=== PATIENT | female | born 1990 | race African-American/Black ===

== ENCOUNTER → 2018-11-09 | Emergency (ER) | payer OTHER | END | disposition home or self-care (01) | LOC: JERFT 18:26 ==

== ENCOUNTER 2020-12-23 12:24 | Emergency (ER) | payer OTHER ==
[2020-12-23 12:31] VITALS: TEMP 98.5; BMI 34.3
[2020-12-23] MEDS ORDERED: MAG HYDROX/AL HYDROX/SIMETH 30 ML UNIT-DOSE CUP PO ONE (13:20)
[2020-12-23] MEDS ORDERED: FAMOTIDINE 20 MG TABLET PO ONE (13:20)
[2020-12-23] MEDS ORDERED: MAG HYDROX/AL HYDROX/SIMETH 30 ML UNIT-DOSE CUP ONE (13:24)
[2020-12-23] MEDS ORDERED: FAMOTIDINE 20 MG TABLET ONE (13:24)
[2020-12-23 13:27] LABS: BASO % 0.6 % (0-2.0); EOS % 0.7 % (0-4.5); HEMATOCRIT 37.2 % (32.4-45.2); HEMOGLOBIN 12.1 GM/dL (10.7-15.3); LYMPH % 11.6 % (8-40); MCH 26.4 pg (25.7-33.7); MCHC 32.5 g/dl (32.0-36.0); MEAN CELL VOLUME 81.1 fl (80-96); MEAN PLT VOLUME 8.3 fl (7.5-11.1); MONO % 5.4 % (3.8-10.2); NEUT % 81.7 % (42.8-82.8); PLATELET COUNT 341 10^3/uL (134-434); RBC 4.59 M/mm3 (3.60-5.2); WHITE BLOOD COUNT 9.5 K/mm3 (4.0-10.0)
[2020-12-23 13:35] LABS: INR 1.18 (0.83-1.09); PROTHROMBIN TIME (PATIENT) 14.2 SEC (9.7-13.0)
[2020-12-23 13:38] LABS: ACTIVATED PTT 33.3 SECONDS (25.2-36.5)
[2020-12-23 14:04] LABS: CHLORIDE 110 mmol/L (98-107); SODIUM 144 mmol/L (136-145)
[2020-12-23 14:09] LABS: ANION GAP 10 MMOL/L (8-16); BLOOD UREA NITROGEN 6.2 mg/dL (7-18); CALCIUM 9.1 mg/dL (8.5-10.1); CO2 24 mmol/L (21-32); GLUCOSE,RANDOM 93 mg/dL (74-106)
[2020-12-23 14:12] LABS: CREATININE 0.8 mg/dL (0.55-1.3); SGPT/ALT 22 U/L (13-61)
[2020-12-23 14:13] LABS: SGOT/AST 16 U/L (15-37)
[2020-12-23 14:14] LABS: BILIRUBIN,TOTAL 0.3 mg/dL (0.2-1); TOT PROT 7.9 g/dl (6.4-8.2)
[2020-12-23 14:15] LABS: ALK PHOS 77 U/L (45-117)
[2020-12-23 14:46] LABS: HCG,QUALITATIVE URINE Negative
[2020-12-23 15:07] LABS: EPI CELLS 6 /uL (0-25.1); HYALINE CASTS 0 /uL (0-3.1); URINE APPEARANCE CLEAR; URINE BACTERIA 74 /uL (0-1359); URINE BILIRUBIN NEGATIVE (NEGATIVE); URINE COLOR YELLOW; URINE GLUCOSE (UA) NEGATIVE (NEGATIVE); URINE KETONE NEGATIVE (NEGATIVE); URINE LEUK ESTERASE NEGATIVE (NEGATIVE); URINE NITRITE NEGATIVE (NEGATIVE); URINE PROTEIN NEGATIVE (NEGATIVE); URINE RBC 65 /uL (0-23.9); URINE UROBILINOGEN 0.2 mg/dL (0.2-1.0); URINE WBC 15 /uL (0-25.8)
[2020-12-23] MEDS ORDERED: DICYCLOMINE HCL 20 MG TABLET PO ONE (15:40)
[2020-12-23] MEDS ORDERED: SUCRALFATE 1 GM/10 ML UNIT DOSE CUPS PO ONE (15:43)
[2020-12-23] MEDS ORDERED: KETOROLAC TROMETHAMINE 30 MG/1 ML VIAL IM ONE (17:02)
[2020-12-23] MEDS ORDERED: KETOROLAC TROMETHAMINE 30 MG/1 ML VIAL ONE (17:14)
[2020-12-23 18:00] VITALS: BP 128/72; PULSE 66
== END 2020-12-23 18:00 | disposition home or self-care (01) ==
LOC: JER 12:24
PROC: 3E0233Z Introduction of Anti-inflammatory into Muscle, Percutaneous Approach (ICD-10-PCS; principal; 2020-12-23)
DX: K21.9 Gastro-esophageal reflux disease without esophagitis (principal); K29.00 Acute gastritis without bleeding; R10.13 Epigastric pain
CPT/HCPCS: 36415; 80053; 81003; 82550; 82553; 84484; 84703; 85025; 85610; 85730; 86850; 86900; 86901; 87086; 99284-25

== ENCOUNTER 2023-09-11 17:49 | Emergency (ER) | payer OTHER ==
[2023-09-11 18:03] VITALS: BP 131/65; PULSE 88; RESP 18; TEMP 99.6; BMI 46.0
[2023-09-11 18:44] LABS: EPI CELLS 5 /uL (0-25.1); HYALINE CASTS 0 /uL (0-3.1); PH,URINE 6.5 (5.0-8.0); URINE APPEARANCE CLEAR; URINE BACTERIA 56 /uL (0-1359); URINE BILIRUBIN NEGATIVE (NEGATIVE); URINE COLOR YELLOW; URINE GLUCOSE (UA) NEGATIVE (NEGATIVE); URINE KETONE NEGATIVE (NEGATIVE); URINE LEUK ESTERASE NEGATIVE (NEGATIVE); URINE NITRITE NEGATIVE (NEGATIVE); URINE PROTEIN NEGATIVE (NEGATIVE); URINE RBC 41 /uL (0-23.9); URINE WBC 2 /uL (0-25.8)
== END 2023-09-11 20:11 | disposition home or self-care (01) ==
LOC: JER 17:49
DX: N85.8 Other specified noninflammatory disorders of uterus (principal); N94.6 Dysmenorrhea, unspecified
CPT/HCPCS: 76830-TC; 81003; 84703; 87077; 87086; 99284-25

== ENCOUNTER 2024-01-18 13:15 | Emergency (ER) | payer OTHER ==
[2024-01-18 13:21] VITALS: BP 105/71; PULSE 91; RESP 18; TEMP 97.9; BMI 46.0
== END 2024-01-18 13:58 | disposition home or self-care (01) ==
LOC: JER 13:15 → JERFT 13:15
DX: H92.01 Otalgia, right ear (principal); H60.91 Unspecified otitis externa, right ear
CPT/HCPCS: 99283-25

== ENCOUNTER 2024-03-06 19:10 | Emergency (ER) | payer OTHER ==
[2024-03-06 19:22] VITALS: BP 112/74; PULSE 80; RESP 18; TEMP 99; BMI 46.0
[2024-03-06] MEDS ORDERED: ALBUTEROL SO4 2.5/IPRATROPIUM 0.5 INH SOL 3 ML VIAL.NEB. NEB ONE (21:15)
[2024-03-06] MEDS: ALBUTEROL SO4 2.5/IPRATROPIUM 0.5 INH SOL 3 ML VIAL.NEB. NEB ONE (21:18)
== END 2024-03-06 21:55 | disposition home or self-care (01) ==
LOC: JERFT 19:10 → JER 19:10 → JERFT 21:55
PROC: 3E0F7GC Introduction of Other Therapeutic Substance into Respiratory Tract, Via Natural or Artificial Opening (ICD-10-PCS; principal; 2024-03-06)
DX: R07.89 Other chest pain (principal); R09.89 Other specified symptoms and signs involving the circulatory and respiratory systems; B34.9 Viral infection, unspecified; Z20.822 Contact with and (suspected) exposure to COVID-19
CPT/HCPCS: 0241U-QW; 71046-TC-FY; 93005; 93010; 94640; 99285-25